=== PATIENT | male | born 1965 | race Caucasian/White ===

== ENCOUNTER 2018-05-15 15:04 | Outpatient (CLI) | payer OTHER, SELFPAY ==
--- NOTE | 2018-05-17 11:55 | ONE_ITS ---
DATE OF SERVICE: May 15, 2018 ASSESSMENT: Left shoulder tendonitis, question of small tear, resolving. PLAN: I am going to go ahead and release him to [facility] today. He is functioning very well without discomfort. He is reassured that the sleep position is likely to continue to improve gradually. He will contin ue modifying tasks as needed. Greater than 50% of this visit was spent in planning and coordinating care. EMPLOYER: [employer] SUBJECTIVE: Mr. Carrero returns for reassessment of left shoulder pain which has continued to improve. He is wor sada without restrictions and says work really gives him no discomfort whatsoever. His only concern is ongoing lateral shoulder discomfort if he lies directly on the left shoulder laterally. It doesn' t awaken him, but he says he does feel it after about 30 seconds of being in that position. Once he changes position, the discomfort resolves after a few moments. He has resumed all of his usual activ ities at home, including gardening, remodeling, and he's about to resume golf. REVIEW OF SYSTEMS: Feels generally well without swelling, numbness, tingling, or paresthesias of upper extremities. No chest pain, cough, wheeze, or dyspnea. No abdominal pain, nausea, vomiting, or GI complaints. PAST MEDICAL HISTORY: 1. Hypertension. 2. Degenerative joint disease, lumbar spine, which has been stable. 3. 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 4. Old work comp injury, left hand. CURRENT MEDICATIONS: Currently not using any pain medications for the shoulder. Had taken antihypertensive at one time bu t discontinued it after some weight loss. SOCIAL: with children. HABITS: Doesn't smoke. Alcohol: 2-3 beers twice or three times per week. He is very physically active and he does exercise regularly. OBJECTIVE: Alert, pleasant, cooperative, in no acute distress. Musculoskeletal exam: No tenderness to direct palpation of the cervical spine, none in the periscapul ar area, none over the left AC. No tenderness over the rotator cuff or in the proximal biceps. Range of motion: Full cross-body adduction. External rotation to C7. He experiences some pulling laterally today with full external rotation. I t relieves quickly with change of position. Internal rotation performed at L5 without difficulty. Flexion and abduction to 180 degrees. Empty can is negative. Upper extremity muscle strength 5/5 bilaterally. DTRs upper extremities 1+ bilaterally. Sensory of upper extremities is intact.
== END 2018-05-15 15:05 ==
PROVIDERS: Visit Provider Nurse Practitioner Family
DX: M25.512 Pain in left shoulder (principal); M75.82 Other shoulder lesions, left shoulder
CPT/HCPCS: 99214